=== PATIENT | male | born 1960 | race Caucasian/White ===

== ENCOUNTER 2023-01-02 09:59 | Observation (INO) ==
[2023-01-02] MEDS ORDERED: HYDROmorphone 0.5 MG/0.5 ML SYRINGE IV PRN (10:20)
[2023-01-02] MEDS ORDERED: 0.9 % SODIUM CHLORIDE 1,000 ML IV ONE (10:20)
[2023-01-02] MEDS ORDERED: morphine 4 MG/ML VIAL IV ONE (10:31)
--- NOTE | 2023-01-02 10:52 | Emergency Department Note ---
Abdominal Pain HPI General Chief Complaint: Abdominal Pain Stated Complaint: epigastric pain Time Seen by Provider: 01/02/23 10:14 Source: patient Mode of arrival: ambulatory Limitations: no limitations History of Present Illness HPI Narrative: Narrative: The patient presents with right upper quadrant abdominal pain. The patient states that he has been having intermittent symptoms for the last several months but has had severe symptoms for the last several days. He is unaware of any relationship to food. He does state that they had steak and hamburgers over the weekend and that might have caused the exacerbation. He is nauseated from this and has dry heaves. He denies any diarrhea. He denies any dysuria. He denies any fever but has felt chilled the last few days. He denies any difficulty breathing or chest pain. On review of systems, he does say that he has had an intermittent cough for the last several years. He says he has to blow his nose frequently and there is a lot of mucus. Patient denies any radiation of his pain. There has been no migration. Related Data Previous Rx's Medication Instructions Recorded hydrocodone 5 mg-acetaminophen 325 1 tab PO Q4H PRN pain #8 tabs 01/02/23 mg tablet ondansetron 4 mg disintegrating 4 mg PO Q6H PRN nausea and 01/02/23 tablet vomiting #20 tabs Allergies Allergy/AdvReac Type Severity Reaction Status Date / Time No Known Drug Allergies Allergy Verified 01/02/23 10:10 Review of Systems ROS ROS Narrative: Narrative: All systems ED: reviewed and negative except as stated. [facility] Narrative Patient History Narrative: Narrative: Medical/Surgical/Family History All Active Problems (Updated 01/02/23 @ 12:51 by Gabriele Mo MD) Laceration (Acute) Acute cholecystitis (Acute) Social History Smoking Status: Never smoker Exam Narrative Narrative: Narrative: General Limitations: no limitations General appearance: Present alert and in no apparent distress Head Head: Present atraumatic and normal inspection Eye Eye: Present normal appearance ENT ENT: Present mucous membranes moist Neck Neck: Present normal inspection, full ROM and trachea midline Chest Chest: Present normal inspection and symmetric chest wall rise Respiratory Respiratory: Present normal lung sounds bilaterally; Absent respiratory distress Cardiovascular Cardiovascular: Present normal rhythm and tachycardia Adbominal Abdominal: Present soft, tenderness (Mild tenderness in the midepigastric area with no rebound. Moderate tenderness in the right upper quadrant with voluntary guarding but no rebound.), guarding and Merlos's sign; Absent distention, paras ound, psoas sign, obturator sign, Rovsing's sign or tenderness at McBurney's Point Extremities Extremities: Present normal inspection and full ROM Back Back: Present full ROM; Absent CVA tenderness (R) or CVA tenderness (L) Neurological Neurological: Present alert and oriented X3 Psychiatric Psychiatric: Present normal affect and normal mood Skin Skin: Present warm (WNL) and dry Course Consultations Consultation #1: I spoke with the general surgeon, Dr. Patricio. He wants to place this patient in observation and have us get an MRCP and give a dose of Zosyn. Time: 12:50 Vital Signs Vital signs: Vital Signs Temperature 99.2 F H 01/02/23 10:07 Pulse Rate 125 H 01/02/23 10:07 Respiratory Rate 20 01/02/23 10:07 Blood Pressure 139/79 01/02/23 10:07 Pulse Oximetry (%) 96 01/02/23 10:07 Oxygen Delivery Method Room Air 01/02/23 10:07 Temperature 99.2 F H 01/02/23 10:07 Pulse Rate 125 H 01/02/23 10:07 Respiratory Rate 20 01/02/23 10:07 Blood Pressure 139/79 01/02/23 10:07 Pulse Oximetry (%) 96 01/02/23 10:07 Oxygen Delivery Method Room Air 01/02/23 10:07 MDM MDM Narrative Medical decision making narrative: Narrative: The patient presents with right upper quadrant abdominal pain. Gallbladder etiology would be the most likely. Pancreatitis is also possible. I have no concern for appendicitis given lack of right lower quadrant tenderness. I have no concern for diverticulitis given no left lower quadrant tenderness. I do not think this is cardiac masquerading his abdomen given the tenderness on exam. Given his cough, right lower lobe pneumonia is possible. Plan to start with an ultrasound and appropriate labs. We will also do a chest x-ray. We will medicate for pain and nausea as well as hydrate. Lab Data 01/02/23 11:00 01/02/23 10:59 Labs: Lab Results 01/02/23 01/02/23 Range/Units 10:59 11:00 WBC 13.4 H (4.5-11.0) K/mcL RBC 4.14 L (4.63-6.08) M/mcL Hgb 12.3 L (13.7-17.5) g/dL Hct 36.1 L (40.1-51.0) % MCV 87.2 (80.0-100.0) fL MCH 29.7 (26.0-34.0) pg MCHC 34.1 (31.0-36.0) g/dL RDW 13.1 (11.5-14.5) % Plt Count 154 (140-440) K/mcL MPV 11.3 (8.8-12.5) fL Immature Gran % (Auto) 0.9 H (0.0-0.5) % Neut % (Auto) 87.3 H (38.0-78.0) % Lymph % (Auto) 3.2 L (15.5-49.0) % [place] % (Auto) 8.5 (1.0-12.0) % Eos % (Auto) 0 (0.0-7.0) % Baso % (Auto) 0.1 (0.0-2.0) % Lymph # (Auto) 0.43 L (1.50-4.80) K/mcL [place] # (Auto) 1.14 H (0.10-0.90) K/mcL Eos # (Auto) 0 (0.00-0.70) K/mcL Baso # (Auto) 0.01 (0.00-0.30) K/mcL Immature Gran # 0.12 H (0.00-0.05) K/mcl Absolute Neutrophils 11.66 H (1.80-8.00) K/mcL Sodium 130 L (133-145) mmol/L Potassium 3.9 (3.3-5.1) mmol/L Chloride 96 (96-108) mmol/L Carbon Dioxide 24 (22-30) mmol/L Anion Gap 10.0 (8.0-16.0) BUN 20 (8-23) mg/dL Creatinine 0.8 (0.7-1.2) mg/dL GFR Calculation 95 Glucose 129 H (70-105) mg/dL Calcium 8.7 (8.6-10.4) mg/dL Total Bilirubin 2.8 H (0.1-1.0) mg/dL AST 34 (<40) U/L ALT 145 H (<40) U/L Alkaline Phosphatase 165 H (39-117) U/L Total Protein 6.8 (5.9-8.4) gm/dL Albumin 3.5 (3.2-5.2) gm/dL Globulin 3.3 (2.2-3.7) gm/dL Albumin/Globulin Ratio 1.1 (1.0-2.3) Lipase 19 (7-60) U/L Discharge Plan Patient/Caregiver Discharge Instructions Pt seen by [facility]/PA only: No Clinical Impression: Acute cholecystitis Patient Disposition: Xfer As Inpt ([facility]) Condition: Fair Follow up with: No,PCP [Primary Care Provider] - Prescriptions: New hydrocodone-acetaminophen 5-325 mg tablet 1 tab PO Q4H PRN (Reason: pain) Qty: 8 0RF ondansetron 4 mg tablet,disintegrating 4 mg PO Q6H PRN (Reason: nausea and vomiting) Qty: 20 0RF
--- NOTE | 2023-01-02 10:59 | XRay Report ---
INDICATION: cough TECHNIQUE: AP portable upright chest x-ray COMPARISON: None FINDINGS: Lungs:Lungs are negative. No focal pulmonary parenchymal infiltrate or mass Heart, vascular:No significant cardiomegaly. Pulmonary vascularity is normal. No pulmonary edema or pulmonary congestion Mediastinum, sheng:No mediastinal widening. No hilar mass Pleura:No pleural fluid. No pleural-based mass or calcification Skeletal:Negative. IMPRESSION: Negative AP chest x-ray Interpreted and Authenticated by: Eugenio Frances 01/02/23
--- NOTE | 2023-01-02 11:03 | Ultrasound Report ---
INDICATION: ruq TECHNIQUE: Grayscale and color flow Doppler spectral imaging COMPARISON: None. FINDINGS: Gallbladder:No discrete calculi. There is echogenic material in the dependent portion of the gallbladder which may be biliary sludge. Gallbladder wall is irregular and measures up to 6 mm in thickness. No pericholecystic fluid. No positive sonographic Merlos's sign. Common bile duct:No intra or extrahepatic bile duct dilatation.. Common bile duct measures6 mm Liver:No solid or cystic hepatic mass. Liver contour is smooth. No ascites. Probable fat deposition along the falciform ligament. Liver [id number] cm Portal vein:Normal hepatopedal portal venous flow Pancreas:Pancreas is echogenic. No focal mass. No peripancreatic abnormality. No duct dilatation IMPRESSION: Probable biliary sludge. Irregular thickened gallbladder wall. No pericholecystic fluid or positive sonographic Merlos's sign Interpreted and Authenticated by: Eugenio Frances 01/02/23
[2023-01-02] MEDS: ONDANSETRON 4 MG/2 ML VIAL IV ONE ×2 (11:19→13:10)
[2023-01-02 11:50] LABS: Basophils # (Auto) 0.01 K/mcL (0.00-0.30); Basophils % (Auto) 0.1 % (0.0-2.0); Eosinophils # (Auto) 0 K/mcL (0.00-0.70); Eosinophils % (Auto) 0 % (0.0-7.0); Hematocrit 36.1 % (40.1-51.0); Hemoglobin 12.3 g/dL (13.7-17.5); Lymphocytes # (Auto) 0.43 K/mcL (1.50-4.80); Lymphocytes % (Auto) 3.2 % (15.5-49.0); Mean Cell Volume 87.2 fL (80.0-100.0); Mean Corpuscular HGB Conc 34.1 g/dL (31.0-36.0); Mean Platelet Volume 11.3 fL (8.8-12.5); Monocytes # (Auto) 1.14 K/mcL (0.10-0.90); Monocytes % (Auto) 8.5 % (1.0-12.0); Neutrophils % (Auto) 87.3 % (38.0-78.0); Platelet Count 154 K/mcL (140-440); RBC 4.14 M/mcL (4.63-6.08); Red Cell Distribution Width 13.1 % (11.5-14.5); WBC 13.4 K/mcL (4.5-11.0)
[2023-01-02 12:16] LABS: ALT/SGPT 145 U/L (<40); AST/SGOT 34 U/L (<40); Albumin 3.5 gm/dL (3.2-5.2); Albumin/Globulin Ratio 1.1 (1.0-2.3); Alkaline Phosphatase 165 U/L (39-117); Bilirubin,Total 2.8 mg/dL (0.1-1.0); Blood Urea Nitrogen 20 mg/dL (8-23); Calcium 8.7 mg/dL (8.6-10.4); Carbon Dioxide 24 mmol/L (22-30); Chloride 96 mmol/L (96-108); Globulin 3.3 gm/dL (2.2-3.7); Glomerular Filtration Rate 95; Glucose 129 mg/dL (70-105)
[2023-01-02] MEDS ORDERED: PIPERACILLIN SODIUM/TAZOBACTAM 3.375 GM in DEXTROSE 5% IN WATER 50 ML IV ONE (12:52)
--- NOTE | 2023-01-02 14:16 | Magnetic Resonance Report ---
INDICATION: elevated bili TECHNIQUE: Routine noncontrast MRCP COMPARISON: Previous ultrasound dated 01/02/2023 FINDINGS: Technically limited evaluation as this patient apparently unable to suspend respiration. Gallbladder lumen is negative. No intraluminal filling defects. No gallstones. No biliary sludge identified. Previous examination was suspicious for gallbladder wall thickening. Sonographic appearance is probably related to pericholecystic fat. Gallbladder wall appears normal. No generalized thickening. No mass No intrahepatic bile duct dilatation. Common bile duct measures approximately 4 mm. No choledocholithiasis. Pancreatic duct is normal. No dilatation. Liver, spleen, pancreas, adrenal glands are negative. IMPRESSION: 1. Technically limited MRCP due to inability to suspend respiration 2. Negative examination. No cholelithiasis or choledocholithiasis. No gallbladder wall thickening Interpreted and Authenticated by: Eugenio Frances 01/02/23
--- NOTE | 2023-01-02 15:19 | General Surg History&Physical ---
HPI History of Present Illness Patient information: Note initiated : 01/02/23 at 3:13 pm Service Date, if different from initiated Date: [] Patient: Shiv Gold 62 y/o M admitted on for epigastric pain. Chief Complaint: [] Chief complaint: Acute cholecystitis History of present illness: Mr. Gold is a 62 year old M with history of increasing abdominal pain for 1 week. Over the past 2 days he has had increasing severe epigastric and right upper quadrant pain. He had nausea without vomiting. He did not have any radiation through to his back. Patient noted increasing severe epigastric discomfort. Evaluation shows mild thickening of the gallbladder with some increasing sludge. LFTs are slightly elevated including AST and ALT. Bilirubin is also elevated. Patient had MRCP which shows normal hepatic and common duct without evidence of filling defects. Patient is counseled for laparoscopic cholecystectomy. It will be performed tomorrow. Review of Systems All systems: reviewed and no additional remarkable complaints except as stated Gastrointestinal Gastrointestinal: Present abdominal pain, cramping and nausea; Absent early satiety, heartburn or vomiting PFSH PFSH All Active Problems (Updated 01/02/23 @ 15:18 by Thomas Patricio MD) Elevated liver function tests (Acute) Laceration (Acute) Acute cholecystitis (Acute) Social History smoking status: Never smoker MEDS/ALLERGIES Home Medications and Allergies Home Medications Medication Instructions Recorded Confirmed Type hydrocodone 5 mg-acetaminophen 325 1 tab PO Q4H PRN pain #8 tabs 01/02/23 Rx mg tablet ondansetron 4 mg disintegrating 4 mg PO Q6H PRN nausea and 01/02/23 Rx tablet vomiting #20 tabs Allergies Allergy/AdvReac Type Severity Reaction Status Date / Time No Known Drug Allergies Allergy Verified 01/02/23 10:10 Physical Examination Vital Signs Vital signs: Temp Pulse Resp BP Pulse Ox O2 Del Method 99.2 F H 124 H 20 139/79 96 Room Air 01/02/23 10:07 01/02/23 13:19 01/02/23 10:07 01/02/23 10:07 01/02/23 10:07 01/02/23 10:07 General physical appearance General physical exam: well developed, well nourished, moderate distress and moderate pain Eyes Eye exam: PERRL, normal ocular movement and icteric ENT ENT exam: normal mucosa and decreased hearing Head Head exam IM: Present atraumatic, normal inspection and normocephalic Neck Neck exam: no masses, no bruits, trachea midline, no lymphadenopathy and no venous distension Cardiovascular Cardiovascular exam IM: Present normal rate and rhythm, RRR, +S1 and +S2; Absent JVD Respiratory Respiratory exam: normal expansion, normal respiratory effort and clear to auscultation Abdomen Abdomen: Present tender (Epigastric and right upper quadrant tenderness) and guarding; Absent rebound Integumentary Integumentary: Present no rash, no growths and no abnormal pigmentation Neurologic Neurologic: Present normal coordination and normal sensation Musculoskeletal Musculoskeletal: Present normal gait and normal posture Psychiatric Psychiatric: Present oriented to time, oriented to person, oriented to place, speech is normal and memory intact Results Labs 01/02/23 11:00 01/02/23 10:59 Labs: Abnormal lab results 01/02/23 01/02/23 Range/Units 10:59 11:00 WBC 13.4 H (4.5-11.0) K/mcL RBC 4.14 L (4.63-6.08) M/mcL Hgb 12.3 L (13.7-17.5) g/dL Hct 36.1 L (40.1-51.0) % Immature Gran % (Auto) 0.9 H (0.0-0.5) % Neut % (Auto) 87.3 H (38.0-78.0) % Lymph % (Auto) 3.2 L (15.5-49.0) % Lymph # (Auto) 0.43 L (1.50-4.80) K/mcL [place] # (Auto) 1.14 H (0.10-0.90) K/mcL Immature Gran # 0.12 H (0.00-0.05) K/mcl Absolute Neutrophils 11.66 H (1.80-8.00) K/mcL Sodium 130 L (133-145) mmol/L Glucose 129 H (70-105) mg/dL Total Bilirubin 2.8 H (0.1-1.0) mg/dL ALT 145 H (<40) U/L Alkaline Phosphatase 165 H (39-117) U/L Diabetes panel 01/02/23 Range/Units 10:59 Sodium 130 L (133-145) mmol/L Potassium 3.9 (3.3-5.1) mmol/L Chloride 96 (96-108) mmol/L Carbon Dioxide 24 (22-30) mmol/L BUN 20 (8-23) mg/dL Creatinine 0.8 (0.7-1.2) mg/dL Glucose 129 H (70-105) mg/dL Calcium 8.7 (8.6-10.4) mg/dL AST 34 (<40) U/L ALT 145 H (<40) U/L Alkaline Phosphatase 165 H (39-117) U/L Total Protein 6.8 (5.9-8.4) gm/dL Albumin 3.5 (3.2-5.2) gm/dL Calcium panel 01/02/23 Range/Units 10:59 Calcium 8.7 (8.6-10.4) mg/dL Albumin 3.5 (3.2-5.2) gm/dL Pituitary panel 01/02/23 Range/Units 10:59 Sodium 130 L (133-145) mmol/L Potassium 3.9 (3.3-5.1) mmol/L Chloride 96 (96-108) mmol/L Carbon Dioxide 24 (22-30) mmol/L BUN 20 (8-23) mg/dL Creatinine 0.8 (0.7-1.2) mg/dL Glucose 129 H (70-105) mg/dL Calcium 8.7 (8.6-10.4) mg/dL Adrenal panel 01/02/23 Range/Units 10:59 Sodium 130 L (133-145) mmol/L Potassium 3.9 (3.3-5.1) mmol/L Chloride 96 (96-108) mmol/L Carbon Dioxide 24 (22-30) mmol/L BUN 20 (8-23) mg/dL Creatinine 0.8 (0.7-1.2) mg/dL Glucose 129 H (70-105) mg/dL Calcium 8.7 (8.6-10.4) mg/dL Total Bilirubin 2.8 H (0.1-1.0) mg/dL AST 34 (<40) U/L ALT 145 H (<40) U/L Alkaline Phosphatase 165 H (39-117) U/L Total Protein 6.8 (5.9-8.4) gm/dL Albumin 3.5 (3.2-5.2) gm/dL All other labs normal. A/P Assessment and plan (1) Acute cholecystitis: Status: Acute (2) Elevated liver function tests: Status: Acute Plan Patient is admitted to observation Zosyn 3.375 g IV every 6 hours Reglan 10 mg IV every 6 hours Promethazine 12.5 mg IV every 4 hours Patient counseled for laparoscopic cholecystectomy tomorrow Time Spent With Patient Time: Total time spent is greater than 50% in coordination of care (as documented) at patient's floor/unit and/or counseling patient:
[2023-01-02] MEDS ORDERED: PROMETHAZINE 25 MG/ML VIAL IV PRN (15:24)
[2023-01-02] MEDS ORDERED: ONDANSETRON 4 MG/2 ML VIAL IV PRN (15:24)
[2023-01-02] MEDS ORDERED: PIPERACILLIN SODIUM/TAZOBACTAM 3.375 GM in DEXTROSE 5% IN WATER 50 ML IV SCH (15:30)
[2023-01-02] MEDS: 0.9 % SODIUM CHLORIDE 1,000 ML IV SCH ×2 (15:56→23:44)
[2023-01-02] MEDS ORDERED: HYDROmorphone 1 MG/ML SYRINGE IV PRN (16:16)
[2023-01-02 16:20] LABS: Partial Thromboplastin Time 31.7 sec (20.0-37.0)
[2023-01-02 16:28] LABS: INR 1.2 (0.9-1.1); Prothrombin Time 15.9 sec (11.9-14.5)
[2023-01-02] MEDS: PANTOPRAZOLE 40 MG VIAL IV SCH (17:41)
[2023-01-02] MEDS: ACETAMINOPHEN 1,000 MG/100 ML BAG IV SCH ×2 (17:41→22:18)
[2023-01-02] MEDS: PIPERACILLIN SODIUM/TAZOBACTAM 3.375 GM in DEXTROSE 5% IN WATER 50 ML IV SCH (22:19)
[2023-01-03] MEDS: PIPERACILLIN SODIUM/TAZOBACTAM 3.375 GM in DEXTROSE 5% IN WATER 50 ML IV SCH ×6 (02:39→23:58)
[2023-01-03] MEDS: ACETAMINOPHEN 1,000 MG/100 ML BAG IV SCH ×2 (05:52→10:35)
[2023-01-03 05:54] LABS: Basophils # (Auto) 0.01 K/mcL (0.00-0.30); Basophils % (Auto) 0.1 % (0.0-2.0); Eosinophils # (Auto) 0 K/mcL (0.00-0.70); Eosinophils % (Auto) 0 % (0.0-7.0); Hematocrit 35.4 % (40.1-51.0); Hemoglobin 11.9 g/dL (13.7-17.5); Lymphocytes # (Auto) 0.37 K/mcL (1.50-4.80); Lymphocytes % (Auto) 3.1 % (15.5-49.0); Mean Cell Volume 86.6 fL (80.0-100.0); Mean Corpuscular HGB Conc 33.6 g/dL (31.0-36.0); Mean Platelet Volume 11.6 fL (8.8-12.5); Monocytes # (Auto) 0.71 K/mcL (0.10-0.90); Monocytes % (Auto) 5.9 % (1.0-12.0); Neutrophils % (Auto) 90.2 % (38.0-78.0); Platelet Count 110 K/mcL (140-440); RBC 4.09 M/mcL (4.63-6.08); Red Cell Distribution Width 13.1 % (11.5-14.5); WBC 12.1 K/mcL (4.5-11.0)
[2023-01-03] MEDS: 0.9 % SODIUM CHLORIDE 1,000 ML IV SCH ×3 (05:54→19:04)
[2023-01-03 06:10] LABS: ALT/SGPT 96 U/L (<40); AST/SGOT 21 U/L (<40); Albumin 2.9 gm/dL (3.2-5.2); Albumin/Globulin Ratio 0.9 (1.0-2.3); Alkaline Phosphatase 173 U/L (39-117); Bilirubin,Direct 4.4 mg/dL (<0.3); Bilirubin,Total 5.3 mg/dL (0.1-1.0); Blood Urea Nitrogen 16 mg/dL (8-23); Calcium 8.5 mg/dL (8.6-10.4); Carbon Dioxide 23 mmol/L (22-30); Chloride 99 mmol/L (96-108); Globulin 3.4 gm/dL (2.2-3.7); Glomerular Filtration Rate 90; Glucose 145 mg/dL (70-105); Lactate Dehydrogenase 150 U/L (135-225); Triglycerides 93 mg/dL (<150); Uric Acid 2.4 mg/dL (2.5-8.0)
[2023-01-03] MEDS: PANTOPRAZOLE 40 MG VIAL IV SCH ×2 (07:14→16:31)
[2023-01-03] MEDS ORDERED: IPRATROPIUM/ALBUTEROL 3 ML AMPUL.NEB NEB PRN (07:42)
[2023-01-03] MEDS ORDERED: SCOPOLAMINE 1 PATCH PATCH TOPICAL PRN (07:42)
--- NOTE | 2023-01-03 13:40 | General Surgery Progress Note ---
SUBJECTIVE Subjective Patient information: Note initiated : 01/03/23 at 1:34 pm Service Date, if different from initiated Date: [] Patient: Shiv Gold 62 y/o M admitted on 01/02/23 for epigastric pain. Chief Complaint: [] Principal diagnosis: Right upper quadrant pain Interval history: Patient states that he feels better. He has less pain. He denies nausea. His bilirubin and transaminases are elevated since last evening. GGT is also elevated. He was febrile to 102 degrees last evening but is afebrile at this time. Discussed the ultrasound and MR CP results with the radiologist who feels that there is no evidence of common bile duct dilation and there is no filling defect in the common bile duct. He also states that there were no stones or sludge in the gallbladder. Based on these findings the cholecystectomy will be related and patient will be monitored. Enzymes and CBC will be checked in the morning. Constitutional Vitals: Vital Signs Temp Pulse Resp BP Pulse Ox O2 Del Method O2 Flow Rate 98.0 F 71 22 105/69 100 Room Air 97 01/03/23 12:00 01/03/23 12:00 01/03/23 12:00 01/03/23 12:00 01/03/23 12:00 01/03/23 12:00 01/02/23 15:26 Period Temp Pulse Resp BP Sys/[place] Pulse Ox O2 Del Method O2 Flow Rate Last 24 Hr 98.0 F-101.7 F 71-125 16-24 101-125/66-69 96-100 Room Air-Room Air 97 Intake and Output 01/03/23 01/03/23 01/03/23 03:59 11:59 19:59 Intake Total 995 1175 Output Total 1100 300 Balance -105 875 Intake & Output: Intake & Output 01/03/23 01/03/23 01/03/23 03:59 11:59 19:59 Intake Total 995 1175 Output Total 1100 300 Balance -105 875 Intake: IV 795 1175 Sodium Chloride 0.9% 1,000 ml @ 595 925 150 mls/hr IV .[id number] DGULAS Rx#: [id number] Zosyn 3.375 gm In Dextrose 5% 100 50 in Water 50 ml @ 100 mls/hr IV Q6H DUGLAS Rx#:[id number] Oral 200 Output: Void Amount 1100 300 Other: Urine Appearance Clear Clear Urine Color Light Daisy Dark Yellow Urine Odor Normal Strong General appearance: cooperative and no acute distress Eye Eye exam: Present scleral icterus (Mild icterus noted) ENT ENT exam: Present mucous membranes moist and normal oropharynx Neck Neck exam: Present full ROM and normal inspection Respiratory Respiratory exam: Present normal respiratory exam and CTAB Cardiovascular Cardiovascular exam: Present normal rate and rhythm, +S1 and +S2; Absent JVD GI/Abdominal GI/Abdominal exam: Present normal bowel sounds; Absent distended or tenderness Extremities Exam Extremities exam: Present normal inspection and neurovascular intact Neurological Exam Neurological exam: Present alert and oriented X3; Absent motor sensory deficit Psychiatric Psychiatric exam: Present normal affect and normal mood A/P Assessment and plan (1) Right upper quadrant abdominal pain: Status: Acute (2) Elevated liver function tests: Status: Acute Plan Continue on antibiotic therapy Check hepatitis profile CBC and repeat liver panel in the a.m. Delay cholecystectomy at this time Sepsis Sepsis Identified: No Time Spent With Patient Time: Total time spent is greater than 50% in coordination of care (as documented) at patient's floor/unit and/or counseling patient:
[2023-01-03] MEDS ORDERED: KETOROLAC 15 MG/ML VIAL IV PRN (19:31)
[2023-01-03] MEDS ORDERED: ACETAMINOPHEN 1,000 MG/100 ML BAG IV PRN ×2 (19:31→20:15)
[2023-01-03] MEDS ORDERED: ACETAMINOPHEN 1,000 MG/100 ML BAG IV ONE (19:51)
[2023-01-04] MEDS: 0.9 % SODIUM CHLORIDE 1,000 ML IV SCH ×3 (00:01→14:15)
[2023-01-04] MEDS: ACETAMINOPHEN 1,000 MG/100 ML BAG IV SCH ×3 (01:56→14:15)
[2023-01-04] MEDS: PIPERACILLIN SODIUM/TAZOBACTAM 3.375 GM in DEXTROSE 5% IN WATER 50 ML IV SCH ×2 (05:44→11:41)
[2023-01-04 06:52] LABS: ALT/SGPT 57 U/L (<40); AST/SGOT 14 U/L (<40); Albumin 2.6 gm/dL (3.2-5.2); Albumin/Globulin Ratio 0.9 (1.0-2.3); Alkaline Phosphatase 170 U/L (39-117); Bilirubin,Direct 4.3 mg/dL (<0.3); Bilirubin,Total 5.1 mg/dL (0.1-1.0); Blood Urea Nitrogen 18 mg/dL (8-23); Calcium 8.4 mg/dL (8.6-10.4); Carbon Dioxide 28 mmol/L (22-30); Chloride 103 mmol/L (96-108); Glomerular Filtration Rate 95; Glucose 108 mg/dL (70-105); Lactate Dehydrogenase 127 U/L (135-225); Phosphorous 2.6 mg/dL (2.5-4.5); Triglycerides 120 mg/dL (<150); Uric Acid 1.9 mg/dL (2.5-8.0)
[2023-01-04 08:23] LABS: Bilirubin,Direct 3.4 mg/dL (<0.3); Bilirubin,Total 4.4 mg/dL (0.1-1.0); Globulin 3.1 gm/dL (2.2-3.7)
[2023-01-04] MEDS: PANTOPRAZOLE 40 MG VIAL IV SCH (08:28)
--- NOTE | 2023-01-04 12:59 | Discharge Summary ---
Discharge Provider Provider IMPORTANT FOLLOW-UP INFORMATION FOR PCP: Patient information: Note initiated : 01/04/23 at 12:48 pm Service Date, if different from initiated Date: [] Patient: Shiv Gold 62 y/o M admitted on 01/02/23 for epigastric pain. Chief Complaint: [] Date of admission: 01/02/23 15:26 Discharge date: 01/04/23 Primary care physician: PCP No Admitting clinician: Thomas Patricio Attending physician on admission: Thomas Patricio Consults: 01/02/23 12:49 Consult to Physician [CONS] Stat Comment: Consulting Provider: Thomas Patricio Reason For Exam: Physician to Consult Attending physician on discharge: Thomas Patricio Discharging clinician: Thomas Patricio COURSE Hospital Course Hospital course: 62-year-old male who was seen in the emergency room on 02 January with complaint of epigastric and right upper quadrant abdominal pain with nausea but no vomiting. The patient states that he has been symptomatic for at least a month. He was seen in the outpatient clinic on 31 December with similar symptoms and had labs done which showed white blood count of 14,000 with normal bilirubin and elevation of AST and ALT. Labs that were repeated on 02 January bilirubin up to 2.8 with slight increase in AST but normal ALT. Ultrasound was said to show dependent echogenic material in the gallbladder suggestive of sludge but no stones noted. MRCP was performed. It did not show any sludge or stones in the gallbladder common bile duct was only 4 mm with no filling defects. There is no dilation of the hepatic ducts. Amylase and lipase were normal. Patient has had elevation in temperature on the evening of the and the night in the 102 range but these returned to normal. Hepatitis screen is negative for A, B, and C hepatitis. The patient did have mild epigastric tenderness on admission but that has resolved. His AST and ALT have trended towards normal as of today. Patient is clinically stable without any evidence of gallbladder disease. He does have a picture suggestive of cholestasis which is primary in the liver there is no history of exposure to any type of toxins. Patient is clinically stable and since his chemical liver panel is trending towards normal it is safe to allow him to go home. I will follow him as an outpatient and if he should have an exacerbation he will be referred to GI doc who does follow-up for primary liver disease. Discharge diagnosis: Acute toxic hepatitis Secondary discharge diagnosis: Right upper quadrant pain Reason for admission: Abdominal pain, fever, transaminitis Procedures: None Pertinent studies/significant findings: MRCP Complications: None Time Spent with Patient Time attestation: Total time spent providing and/or coordinating discharge services: Time spent: Less than 30 minutes Physical Examination Vital Signs Vital signs: Temp Pulse Resp BP Pulse Ox O2 Del Method O2 Flow Rate 98.2 F 95 H 20 135/96 100 Room Air 96 01/04/23 11:50 01/04/23 11:50 01/04/23 11:50 01/04/23 11:50 01/04/23 11:50 01/04/23 11:50 01/04/23 08:00 General physical appearance General physical exam: well developed, well nourished, no distress and no pain Eyes Eye exam: PERRL, normal ocular movement and icteric (Mild scleral icterus) ENT ENT exam: normal mucosa Head Head exam IM: Present atraumatic, normal inspection and normocephalic Neck Neck exam: no masses, no bruits, trachea midline, no lymphadenopathy and no venous distension Cardiovascular Cardiovascular exam IM: Present normal rate and rhythm, RRR, +S1 and +S2; Absent JVD Respiratory Respiratory exam: normal expansion, normal respiratory effort and clear to auscultation Abdomen Abdomen: Present soft, non tender and bowel sounds; Absent organomegaly Integumentary Integumentary: Present no rash, no growths and no abnormal pigmentation Neurologic Neurologic: Present normal coordination and normal sensation Musculoskeletal Musculoskeletal: Present normal gait and normal posture Psychiatric Psychiatric: Present oriented to time, oriented to person, oriented to place, speech is normal and memory intact Discharge Plan Patient/Caregiver Discharge Instructions Activity: increase activity as tolerated Diet: Regular Diet Instructions: Epigastric Pain (GEN) Activity Restrictions/Additional Instructions: May use tylenol for temperature elevations. Increase activity as tolerated. May resume regular diet as tolerated. Please take the lab prescriptions and have drawn at the lab on . Call your physician for sustained fever greater than 100.5, increase in pain not controlled by rest/medication, or any questions/concerns. This discharge packet is provided to you to help keep you informed about your care. We want to ensure you get everything you need when you go home. You will also be receiving a call from us in a few days to follow up with you and see how you are doing since your discharge. This gives us a chance to listen to any concerns you maybe experiencing since you were discharged or any additional needs you may have, as well as providing us feedback on your care experience. We strive to always provide excellent care and thank you for your feedback and for choosing [facility]. Prescriptions: No Action No Known Home Meds Other Ambulatory Orders: Complete Blood Count (Routine) Timeframe: 20230109 Facility: [facility] - Location: Laboratory Ordered By: Thomas Patricio Comprehensive Metabolic Panel (Routine) Timeframe: 20230109 Facility: [facility] - Location: Laboratory Ordered By: Thomas Patricio Prescription drug monitoring program results: PDMP not reviewed Follow Up Plan Follow up with: Thomas Patricio MD [Physician] - (Patient will have CBC and inpatient panel performed on 09 January. Office visit on 11 January for reevaluation, the office will call you with an appointment date/time.) Patient Disposition: Home, Self-Care Assessment: Patient's general status is improved Plan of Treatment: Follow-up as an outpatient with referral to gastroenterology if needed Prognosis: Good Rehab Potential: Good I certify that the patient requires SNF services: No Overall status at discharge: patient is progressing back to baseline Discharge Orders: Discharge Order (Routine); Ordered 01/04/23 Ordered By: Thomas Patricio Pending Pending Pending: Resuscitation Status Full Code Diet Full Liquid Diet Start SatJan 03 1322 Sodium Chloride (Sodium Chloride 0.9%) 1,000 mls @ 150 mls/hr IV .Q6H40M [facility] Admin: 01/04/23 08:29 Dose: 150 mls/hr Documented By: Infusion: 01/04/23 06:42 Dose: 150 mls/hr Documented By: Admin: 01/04/23 00:01 Dose: 150 mls/hr Documented By: Infusion: 01/03/23 21:21 Dose: 150 mls/hr Documented By: Admin: 01/03/23 19:04 Dose: Not Given Documented By: Admin: 01/03/23 14:40 Dose: 150 mls/hr Documented By: Infusion: 01/03/23 12:35 Dose: 150 mls/hr Documented By: Admin: 01/03/23 05:54 Dose: 150 mls/hr Documented By: Infusion: 01/03/23 05:54 Dose: 150 mls/hr Documented By: Admin: 01/02/23 23:44 Dose: 150 mls/hr Documented By: Infusion: 01/02/23 23:32 Dose: 0 mls/hr Documented By: Infusion: 01/02/23 18:38 Dose: 150 mls/hr Documented By: Admin: 01/02/23 15:56 Dose: 150 mls/hr Documented By: MORELIA Piperacillin Sod/Tazobactam (Sod 3.375 gm/ Dextrose) 50 mls @ 100 mls/hr IV Q6H [facility]; Protocol Last Admin: 01/04/23 11:41 Dose: 100 mls/hr Documented By: Infusion: 01/04/23 08:38 Dose: 0 mls/hr Documented By: Admin: 01/04/23 05:44 Dose: 100 mls/hr Documented By: Infusion: 01/04/23 00:30 Dose: 0 mls/hr Documented By: Admin: 01/03/23 23:58 Dose: 100 mls/hr Documented By: Infusion: 01/03/23 19:35 Dose: 0 mls/hr Documented By: Admin: 01/03/23 19:04 Dose: 100 mls/hr Documented By: Infusion: 01/03/23 14:55 Dose: 0 mls/hr Documented By: Admin: 01/03/23 14:40 Dose: 200 mls/hr Documented By: Infusion: 01/03/23 10:36 Dose: 0 mls/hr Documented By: Admin: 01/03/23 07:15 Dose: 200 mls/hr Documented By: Infusion: 01/03/23 03:57 Dose: 0 mls/hr Documented By: Admin: 01/03/23 02:39 Dose: 200 mls/hr Documented By: Infusion: 01/02/23 23:34 Dose: 0 mls/hr Documented By: Admin: 01/02/23 22:19 Dose: 100 mls/hr Documented By: JENNIFER Acetaminophen (Ofirmev) 1,000 mg in 100 mls @ 200 mls/hr IV Q6H [facility]; Protocol Last Admin: 01/04/23 08:28 Dose: 200 mls/hr Documented By: Infusion: 01/04/23 02:30 Dose: 0 mls/hr Documented By: Admin: 01/04/23 01:56 Dose: 200 mls/hr Documented By: JAYDEN Pantoprazole Sodium (Pantoprazole 40 Mg Vial) 40 mg IV BIDAC [facility] Last Admin: 01/04/23 08:28 Dose: 40 mg Documented By: Admin: 01/03/23 16:31 Dose: 40 mg Documented By: Admin: 01/03/23 07:14 Dose: 40 mg Documented By: Admin: 01/02/23 17:41 Dose: 40 mg Documented By: MORELIA Shift Summary 01/04/23 02:05 Shift Summary by Nick Trujillo Pt has rested fairly well around care. ABD pain has been min - re-started IV OFIRMEV 1000mg Q 6hr scheduled. No N/V. No BM. Voiding QS dark nery urine per urinal. No skin issues. Pt is (I) in bed & on unit. He has been up AMB in patel x1, as well as in RM - gait stable w/o device. NS infusing to his LT F/A @ 150ml/hr. VS - Temp up to 102.4 oral early in the shift - MD notified - re- started IV OFIRMEV - temp now WNL (also has PRN Toradol available for pain/temp). H.R. tachy 100-110's - all else WNL on R.A.. Pt is A&O x4, calm, pleasant, & cooperative. Initialized on 01/04/23 02:05 - END OF NOTE
--- NOTE | 2023-01-04 14:13 | EKG ---
[facility] Test Date: 2023-01-02 Pat Name: Shiv Gold Department: ED Room: Gender: Male [employer] Manager: : 1960 Requested By: Thomas Patricio Order Number: [id number] Reading MD: Shiv Rojas Measurements Intervals Cylinder Rate: 108 P: FL: QRS: -36 QRSD: 108 T: 69 QT: 335 QTc: 450 Interpretive Statements Gender not entered, assumed to be male for purpose of ECG interpretation Atrial fibrillation Left axis deviation Abnormal R-wave progression, late transition Nonspecific T abnormalities, lateral leads Electronically Signed On 01-04-2023 14:13:21 PST by Shiv Rojas /[email or web address]/[id number]
[2023-01-04 15:25] LABS: Basophils # (Auto) 0.02 K/mcL (0.00-0.30); Basophils % (Auto) 0.1 % (0.0-2.0); Eosinophils # (Auto) 0.01 K/mcL (0.00-0.70); Eosinophils % (Auto) 0.1 % (0.0-7.0); Hematocrit 35.2 % (40.1-51.0); Hemoglobin 11.8 g/dL (13.7-17.5); Lymphocytes % (Auto) 5.7 % (15.5-49.0); Mean Cell Volume 86.7 fL (80.0-100.0); Mean Corpuscular HGB Conc 33.5 g/dL (31.0-36.0); Mean Platelet Volume 12.8 fL (8.8-12.5); Monocytes # (Auto) 1.05 K/mcL (0.10-0.90); Monocytes % (Auto) 7.4 % (1.0-12.0); Neutrophils % (Auto) 85.9 % (38.0-78.0); Platelet Count 100 K/mcL (140-440); RBC 4.06 M/mcL (4.63-6.08); Red Cell Distribution Width 13.3 % (11.5-14.5); WBC 14.1 K/mcL (4.5-11.0)
== END 2023-01-04 16:45 | disposition home or self-care (01) ==
LOC: MEDSUR 09:59 → ED 09:59 → MEDSUR 15:35
PROVIDERS: ADMIT Family Medicine Adult Medicine; ATTEND Family Medicine Adult Medicine